=== PATIENT | female | born 1950 | race Caucasian/White ===

== ENCOUNTER 2022-03-17 10:10 | Outpatient (CLI) | payer OTHER, SELFPAY ==
[2022-03-17 10:25] LABS: Albumin* 4.9 g/dL (3.3-5.0); Chloride* 102 mmol/L (96-114); Sodium* 139 mmol/L (135-149)
[2022-03-17 10:28] LABS: Alanine Aminotransferase* 24 U/L (4-35); Alkaline Phosphatase* 95 U/L (40-150); Aspartate Amino Transferase* 28 U/L (12-35); Bilirubin Total* 0.5 mg/dL (0.1-1.5); Blood Urea Nitrogen* 15 mg/dL (7-30); Carbon Dioxide* 30 mmol/L (20-32); Cholesterol* 246 mg/dL (90-199); Creatinine* 0.7 mg/dL (0.5-1.5); Estimated Glomerular Filt Rate 92 ml/min; Glucose* 92 mg/dL (60-115); Total Protein* 7.2 g/dL (6.0-8.3)
[2022-03-17 10:29] LABS: Calcium* 9.7 mg/dL (8.4-10.6); HDL Cholesterol* 106 mg/dL (>=50); LDL Cholesterol Calculated 131 mg/dL (<100); Triglycerides* 45 mg/dL (40-149)
[2022-03-17 10:46] LABS: Vitamin D 25 Hydroxy* 58 ng/mL (30-80)
== END 2022-03-17 10:11 | disposition home or self-care (01) ==
PROVIDERS: PCP Family Medicine; Visit Provider Family Medicine
DX: E78.5 Hyperlipidemia, unspecified (principal); M85.80 Other specified disorders of bone density and structure, unspecified site
CPT/HCPCS: 80053; 80061; 82306

== ENCOUNTER 2022-05-04 20:03 | Outpatient (CLI) | payer OTHER, SELFPAY ==
--- NOTE | 2022-05-19 12:29 | W.PM.SLEEP ---
Sleep Study Details Details Interpreting Provider: Bob Marie MD Date of Sleep Study: 05/04/22 Sleep Study Details: STUDY TYPE:? Home ? BMI:? Not recorded ORDERING PROVIDER:? Malika INDICATION:? Concerns about sleep apnea ? SLEEP SUMMARY:? 425 minutes monitored RESPIRATORY SUMMARY:? AHI 1.7, left lateral 1.2, right lateral 3.8 Low oxygen 89 0.7% of study oxygen less than 90% Snoring 0% PERIODIC LIMB MOVEMENTS OF SLEEP:? Not recorded CARDIAC:? Range 45-83 beats per minute, mean 63.3 beats per minute IMPRESSION:? This study does not demonstrate clinically significant obstructive sleep apnea. If sleep disorder is strongly suspected would recommend an in-lab study RECOMMENDATION: See impression
== END 2022-05-04 20:04 | disposition home or self-care (01) ==
LOC: SLEEP 20:04
PROVIDERS: PCP Family Medicine; Visit Provider Otolaryngology
DX: G47.39 Other sleep apnea (principal)
CPT/HCPCS: 95806

== ENCOUNTER 2022-12-03 08:50 | Outpatient (CLI) | payer OTHER, SELFPAY | END 2022-12-03 08:51 | disposition home or self-care (01) | PROVIDERS: PCP Family Medicine; Visit Provider Family Medicine | DX: E78.2 Mixed hyperlipidemia (principal); R53.83 Other fatigue; M85.80 Other specified disorders of bone density and structure, unspecified site; Z13.1 Encounter for screening for diabetes mellitus | CPT/HCPCS: 80061; 82306; 82947 ==

== ENCOUNTER 2023-10-27 15:09 | Outpatient (CLI) | payer OTHER, SELFPAY | END 2023-10-27 15:10 | disposition home or self-care (01) | PROVIDERS: PCP Family Medicine; Visit Provider Family Medicine | DX: R53.83 Other fatigue (principal); R39.89 Other symptoms and signs involving the genitourinary system; K90.829 Short bowel syndrome, unspecified; M85.80 Other specified disorders of bone density and structure, unspecified site; Z13.6 Encounter for screening for cardiovascular disorders | CPT/HCPCS: 80053; 80061; 82306; 82607; 84443; 87086 ==

== ENCOUNTER 2023-11-24 10:35 | Outpatient (CLI) | payer OTHER, SELFPAY | END 2023-11-24 10:36 | disposition home or self-care (01) | LOC: NFLDREF 12-09 13:28 | PROVIDERS: PCP Family Medicine; Referring Provider Family Medicine; Visit Provider Family Medicine | DX: R87.810 Cervical high risk human papillomavirus (HPV) DNA test positive (principal) | CPT/HCPCS: 87624 ==

== ENCOUNTER 2024-01-12 06:10 | Day surgery (SDC) | payer OTHER, SELFPAY ==
[2024-01-12 06:30] VITALS: BMI 22.1
[2024-01-12 06:45] VITALS: BP 116/50; PULSE 57; RESP 16; O2SAT 99
[2024-01-12] MEDS: SODIUM CHLORIDE 0.9 % (FLUSH) 10 ML SYRINGE IVF (06:46)
[2024-01-12 07:09] LABS: Hemoglobin* 12.7 gm/dL (12.0-16.0)
--- NOTE | 2024-01-12 07:10 | W.PM.H&PU ---
History & Physical Update History & Physical Update H&P Reviewed and patient assessed: No changes noted
[2024-01-12 07:22] LABS: Creatinine* 0.7 mg/dL (0.5-1.5); Est. Creatinine Clearance* 41.45; Estimated Glomerular Filt Rate 91 ml/min
[2024-01-12] MEDS: CEFAZOLIN 2 GM INJ IVP (07:40)
[2024-01-12] MEDS: FERRIC SUBSULFATE 8 GM VIAL 1 VIAL TOPICAL (08:02)
[2024-01-12] MEDS: LIDOCAINE 1%-EPI 1:100,000 20 ML INFILTRATI (08:02)
--- NOTE | 2024-01-12 08:04 | W.ANESCHARGE ---
Anesthesia Charges Start Date/Time Anesthesia Start Date: 01/12/24 Anesthesia Start Time: 07:27 Stop Date/Time Anesthesia Stop Date: 01/12/24 Anesthesia Stop Time: 08:33 Summary Extremes of Age - Over 70 or under 1: MDA
[2024-01-12 08:31] VITALS: BP 106/57; PULSE 63; RESP 16; O2SAT 98
[2024-01-12 08:45] VITALS: BP 96/49; PULSE 61; RESP 16; O2SAT 96
[2024-01-12 09:00] VITALS: BP 103/52; PULSE 67; RESP 16; O2SAT 98
[2024-01-12 09:15] VITALS: BP 105/54; PULSE 66; RESP 16; O2SAT 97
--- NOTE | 2024-01-12 09:27 | P.GYNPRC_ITS ---
Procedure Note Time Seen by Provider: 09:00 Date of procedure: 01/12/24 Will [facility] bill your pro fee for this procedure?: Yes Pre-op diagnosis: 1. ROSE MARIE III Post-op diagnosis: 1. ROSE MARIE III Procedure: 1. Colposcopy 2. Cold knife cone Anesthesia: regional and local Complications: None Surgeon: Jennifer Gomez MD Estimated blood loss (mL): 5 IV fluids (mL): 0 Urine Output (mL): 100 Pathology: specimen obtained, sent to pathology (1. Cervical cone biopsy 2. Endocervical curetting ) Condition: stable Disposition: PACU Procedure Description: Exam under anesthesia: Mons normal, clitoris normal, urethral meatus normal. Labia minora and majora normal in appearance bilaterally. Perineum and anus normal appearance. Vaginal introitus with vaginal atrophy. Vaginal with atrophy and scant white discharge. Cervix pink and without lesion. Bimanual exam reveals uterus to be soft, nontender, mobile, anteverted, of normal size and texture. No palpable adnexal masses or tenderness. Colposcopy performed. Abnormal Lugol uptake circumferentially near the cervical os and most prominently at 6 o'clock. Procedure Description: The patient was taken to the operating room where MAC was administered. EUA revealed the above findings. She was prepared and draped in normal sterile fashion in the dorsal lithotomy position in candy cane, taking care to avoid lower extremity hyperextension, hyperflexion or compression. A surgical time-out was performed with the entire o perative staff per protocol. Pneumoboots were placed and activated. Bladder was drained with a straight cath. A weighted speculum and Doreen retractor were placed in the vagina and a tenaculum was placed on the cervix for traction. An angled stitch of 0 Vicryl sutures were placed at 3:00 a.m. and 9:00 a.m. in the lateral vaginal fornices. The cervix was then painted with Lugol's Solution and the lesion borders visualized. A [place] blade was used to excise a cone shaped biopsy circumferentially around the cervical os. The specimen was removed intact. The Kavorkian curette and an ECC brush was used to obtain the endocervical curetting. Tenaculum was removed. For hemostasis, the ball tip electrode was then attached and the unit set to coagulate and the base of the cervix and endocervix were cauterized. Additional hemostasis was provided with application of Monsel's solution to the cervix. Excellent hemostasis was noted at the end of the case. All instruments were removed. Debrief performed per protocol and specimen reviewed. 1. Cervical cone biopsy 2. Endocervical curetting Specimen was sent to pathology in formalin. The patient tolerated the procedure well. Sponge, lap and needle counts were correct x 2. The patient was taken to the recovery room in stable condition.
[2024-01-12 09:35] VITALS: BP 113/51; PULSE 70; RESP 16; O2SAT 98
== END 2024-01-12 09:47 | disposition home or self-care (01) ==
LOC: OR 06:12
PROVIDERS: PCP Family Medicine; Visit Provider Obstetrics & Gynecology
PROC: 0UBC7ZZ Excision of Cervix, Via Natural or Artificial Opening (ICD-10-PCS; CPT 57520; principal; 2024-01-12 07:15)
DX: D06.9 Carcinoma in situ of cervix, unspecified (principal); G47.33 Obstructive sleep apnea (adult) (pediatric); F41.1 Generalized anxiety disorder; K21.9 Gastro-esophageal reflux disease without esophagitis; F17.210 Nicotine dependence, cigarettes, uncomplicated; N95.2 Postmenopausal atrophic vaginitis
CPT/HCPCS: 57454; 00940; 36415; 82565; 85018; 86850; 86900; 86901; 88305; 88307; 88342; 99100; A9270; J0690; J1100; J2405; J2704; J3010

== ENCOUNTER 2024-02-08 08:37 | Outpatient (CLI) | payer OTHER, SELFPAY ==
--- NOTE | 2024-02-08 09:15 | CRLHL7_ITS ---
For Patients: As a result of the Century Cures Act, medical imaging exams and procedure reports are released immediately into your electronic medical record. You may view this report before your referring provider. If you have questions, please contact your health care provider. BILATERAL SCREENING MAMMOGRAM WITH COMPUTER-AIDED DETECTION AND TOMOSYNTHESIS TECHNIQUE: CC and MLO views were obtained. These mammographic images have been obtained using full-field digital technique. These mammographic images were interpreted with the benefit of computer-aided detection. Breast Tomosynthesis was used in this interpretation. COMPARISON FILM: 06/05/20, 02/07/20. FINDINGS: There are scattered areas of fibroglandular density. IMPRESSION: There is no radiographic evidence for malignancy. ASSESSMENT: BI-RADS Category 1: Negative RECOMMENDATION: Routine screening mammogram in 1 year. A lay language report of this examination will be provided to the patient. Lawrence Avila M.D. Diagnostic Radiologist [email or web address] SP/Dictated by: Lawrence Avila MD @ 02/08/2024 9:58:00 AM (Electronically Signed)
== END 2024-02-08 08:38 | disposition home or self-care (01) ==
LOC: MAMMO 08:38
PROVIDERS: PCP Family Medicine; Visit Provider Family Medicine
DX: Z12.31 Encounter for screening mammogram for malignant neoplasm of breast (principal)
CPT/HCPCS: 77063; 77067

== ENCOUNTER 2024-08-09 11:11 | Outpatient (CLI) | payer MEDICARE, SELFPAY | END 2024-08-09 11:12 | disposition home or self-care (01) | PROVIDERS: PCP Family Medicine; Visit Provider Family Medicine | DX: F41.1 Generalized anxiety disorder (principal); R53.81 Other malaise; R53.83 Other fatigue; Z13.21 Encounter for screening for nutritional disorder | CPT/HCPCS: 80053; 82607; 84443 ==

== ENCOUNTER 2024-11-09 08:10 | Outpatient (CLI) | payer MEDICARE, SELFPAY | END 2024-11-09 08:11 | disposition home or self-care (01) | LOC: NFLDREF 11-14 12:10 | PROVIDERS: PCP Family Medicine; Referring Provider Family Medicine; Visit Provider Family Medicine | DX: M85.851 Other specified disorders of bone density and structure, right thigh (principal); M85.852 Other specified disorders of bone density and structure, left thigh; E78.2 Mixed hyperlipidemia; M81.0 Age-related osteoporosis without current pathological fracture; R53.83 Other fatigue | CPT/HCPCS: 80053; 80061; 82306 ==